=== PATIENT | female | born 1960 | race Caucasian/White ===

== ENCOUNTER 2017-07-01 12:57 | Emergency (ER) | payer MEDICARE, SELFPAY ==
[~2017-07-01] VITALS: Ht 165.1 cm; Wt 80.3 kg
[~2017-07-01 12:57] MED LIST: ASPI81CH PO; CHOL10002 PO; CYCL10 PO; DOCU100 PO; DULO60 PO; ESTR.1TPW TOP; IBUP800 PO; L-TYROSINE500 MG PO; MULTIVITAMIN PO; OMEP20ER PO; OXYACE5T PO; PROM25 PO; TUMERIC
[2017-07-01] MEDS ORDERED: PROBIOTIC1 EAC3 PO (13:03)
[2017-07-01] MEDS ORDERED: ASPI81CH PO (13:03)
[2017-07-01] MEDS ORDERED: Hair, Skin & N1 EACH PO (13:03)
[2017-07-01] MEDS ORDERED: MAGAMI (13:04)
[2017-07-01] MEDS ORDERED: Sudogest60 MG PO (13:40)
[2017-07-01] MEDS ORDERED: Augmentin 875-1 EACH PO (13:40)
== END 2017-07-01 14:07 | disposition home or self-care (01) ==
LOC: ER 12:57
DX: J32.9 Chronic sinusitis, unspecified (principal); K21.9 Gastro-esophageal reflux disease without esophagitis; Z91.018 Allergy to other foods; Z88.8 Allergy status to other drugs, medicaments and biological substances; Z79.899 Other long term (current) drug therapy; Z79.82 Long term (current) use of aspirin
CPT/HCPCS: 99283

== ENCOUNTER 2019-02-06 09:51 | Day surgery (SDC) | payer MEDICARE ==
[~2019-02-06] VITALS: Ht 167.6 cm; Wt 77.0 kg
[~2019-02-06 09:51] MED LIST changes: +Augmentin 875-1 EACH PO; +Hair, Skin & N1 EACH PO; +MAGAMI; +PROBIOTIC1 EAC3 PO; +Sudogest60 MG PO
[2019-02-06] MEDS ORDERED: CLIMARA1 EACH TOP (10:25)
--- NOTE | 2019-02-06 10:52 | NUR ---
ASA 325MG GIVEN PO
--- NOTE | 2019-02-06 15:11 | NUR ---
Pt with small hematoma post tr-band. Pressure held, Pt sitting up in chair the hematoma is small with swelling to mid forarm. Pt with tr-band. I did remove 4 cc air upon seeing the swelling and applied manual pressure. Pt now receiving 14 day monitor for post op care. Total of 10 min of pressure held the forearm is improved. July Hasmukh RT held for 5 min.
--- NOTE | 2019-02-06 15:26 | NUR ---
1524 manual pressure held on right radial site for hematoma right past tr-band. By Christie Cruz RN.
--- NOTE | 2019-02-06 18:14 | NUR ---
RADAIL SITE CALL MADE TO DR. ROSS. PT REMAINS A&OX3 AND DENIES ANY PAIN OTHER THAN WHEN WE TOUCH R RADIAL SITE. R RADIAL SITE HAS SWELLING BELOW THE TR BAND-SIZE MARLENE. PRESSURE HAS BEEN HELD THREE TIMES 10 MINUTES EACH. USAR IN TO SEE PT. INSTRUCTIONS GIVEN TO USE MANUAL PRESSURE CUFF FOR 20 MIN ON FOR 3 MIN AND OFF FOR 1 MIN. THIS WAS COMPLETED BY 1720. WILL CONTINUE TO MONITOR.
--- NOTE | 2019-02-06 19:10 | NUR ---
R WRIST TR BAND REMOVED. -BLEEDING OR SWELLING. PUNCTURE AREA CLEANED WITH NS. CLOTH DOT DRSG PLACED. IV REMOVED. R WRIST SPLINT REAPPLIED. SLING APPLIED. PT AND VERBALIZED UNDERSTANDING OF WRITTEN AND VERBAL D/C INST.
== END 2019-02-06 23:50 | disposition home or self-care (01) ==
LOC: MHTC 09:51 → ORSCMMR 09:52 → MHTC 10:00
DX: R07.9 Chest pain, unspecified (principal); R00.2 Palpitations; R94.39 Abnormal result of other cardiovascular function study; E78.5 Hyperlipidemia, unspecified; M19.90 Unspecified osteoarthritis, unspecified site; K21.9 Gastro-esophageal reflux disease without esophagitis; Z79.82 Long term (current) use of aspirin; Z79.899 Other long term (current) drug therapy; Z88.1 Allergy status to other antibiotic agents
CPT/HCPCS: 85347; 93005; 93010; 93458; 99152; 99153; C1769; C1894; J1644; J2250; J3010; J7030; Q9967

== ENCOUNTER → 2022-02-10 | Outpatient (CLI) | payer MEDICARE ==
[~2022-02-10] MED LIST changes: +CLIMARA1 EACH TOP
== END | disposition home or self-care (01) ==
LOC: LAB 19:07 → LAB SHORT 19:07
DX: N39.0 Urinary tract infection, site not specified (principal); M54.50 Low back pain, unspecified; R11.0 Nausea
CPT/HCPCS: 87077; 87086; 87186

== ENCOUNTER → 2022-09-01 | Outpatient (CLI) | payer MEDICARE | END | disposition home or self-care (01) | LOC: LAB SHORT 13:17 → LAB 13:17 | PROVIDERS: Nurse Practitioner Family | DX: E24.9 Cushing's syndrome, unspecified (principal) | CPT/HCPCS: 82530 ==

== ENCOUNTER 2022-11-15 08:51 | Day surgery (SDC) | payer MEDICARE, OTHER ==
[2022-11-15] VITALS (16 sets, daily range): BP systolic 111–150; BP diastolic 82–96
[~2022-11-15] VITALS: Ht 162.6 cm; Wt 87.8 kg
[~2022-11-15 08:51] MED LIST changes: +Ginger250 MG PO; +LOSA50 PO; +TURMERIC500 M2
--- NOTE | 2022-11-15 09:55 | NUR ---
Ambulatory in Day Surgery History, Chart, Medications and Allergies reviewed before start of procedure. Lungs clear anteriorly to Auscultation. Pre-Op teaching done. Pt verbalizes understanding. Patient States Post-Procedure ride home has been arranged.
--- NOTE | 2022-11-15 10:25 | NUR ---
11/15/22 1025 Lorrie Ortiz HISTORY, CHART, MEDICATIONS AND ALLERGIES REVIEWED BEFORE START OF PROCEDURE. PATIENT CONFIRMS NPO STATUS AND AGREES WITH SCHEDULED PROCEDURE. 3-LEAD EKG REVIEWED WITH PHYSICIAN PRIOR TO START OF PROCEDURE. MONITOR INTACT WITH CONTINUOUS PULSE OXIMETRY,CAPNOGRAPHY, 3-LEAD EKG, INTERMITTENT BP. SUPPLEMENTAL O2 TO BE TITRATED THROUGHOUT PROCEDURE TO MAINTAIN O2 SATURATION ABOVE 90%. PATIENT DETERMINED TO BE ASA APPROPRIATE FOR PROPOFOL SEDATION PRIOR TO START OF PROCEDURE BY DR. GOULD.
--- NOTE | 2022-11-15 11:09 | NUR ---
REPORT RECIEVED. PT SITTING UP IN BED TOLERING PO FLUIDS. DR GOULD AND AT BEDSIDE. VSS ON ROOM AIR
--- NOTE | 2022-11-15 11:24 | NUR ---
Patient up to Ambulate independently. Gait steady. Discharge instructions reviewed with patient. Patient verbalizes understanding. Copy given to patient to take home. Discharged via wheelchair to private car for ride home.
== END 2022-11-15 11:25 | disposition home or self-care (01) ==
LOC: ORSCMMR 08:51 → ORD 10:00 → ORSCMMR 11:25
PROVIDERS: Internal Medicine Gastroenterology
PROC: 0DBN8ZX Excision of Sigmoid Colon, Via Natural or Artificial Opening Endoscopic, Diagnostic (ICD-10-PCS; principal; 2022-11-15 10:00)
DX: Z12.11 Encounter for screening for malignant neoplasm of colon (principal); K63.5 Polyp of colon; K21.9 Gastro-esophageal reflux disease without esophagitis; F32.A Depression, unspecified; I10 Essential (primary) hypertension; Z79.82 Long term (current) use of aspirin; Z79.899 Other long term (current) drug therapy
CPT/HCPCS: 88305; J2704; J7120

== ENCOUNTER → 2023-03-19 | Outpatient (CLI) | payer MEDICARE, OTHER | LOC: LAB 12:00 → LAB SHORT 12:00 | DX: R30.0 Dysuria (principal) | CPT/HCPCS: 87077; 87086; 87186 ==

== ENCOUNTER → 2023-04-25 | Outpatient (CLI) | payer MEDICARE, OTHER | LOC: LAB SHORT 11:36 → LAB 11:36 | DX: R10.9 Unspecified abdominal pain (principal) | CPT/HCPCS: 87338 ==

== ENCOUNTER 2024-10-31 07:44 | Day surgery (SDC) | payer MEDICARE ==
[~2024-10-31] VITALS: Ht 160 cm; Wt 63.3 kg
[~2024-10-31 07:44] MED LIST changes: +ABC COMPLETE W1 EACH PO; +ALPR.25 PO; +ATOR80 PO; +CLOP75 PO; +DILT120 PO; +EZET10 PO; +MAGNESIUM GLU27.5 M1; +PANT20 PO; +POTASSIUM PO; +[UNRECOGNIZED DRUG - CODE] PO
[2024-10-31] MEDS ORDERED: LOSA25 PO (08:14)
[2024-10-31] MEDS ORDERED: POTA10T PO (08:15)
--- NOTE | 2024-10-31 09:05 | NUR ---
10/31/24 0905 Sara Hopson History, Chart, Medications and Allergies reviewed before start of procedure. eliot providing anesthesia see notes. prior to start of procedure bite block placed and O2 via pom mask on at 10L
[2024-10-31 10:24] VITALS: BP 113/79
--- NOTE | 2024-10-31 10:42 | NUR ---
Discharge instructions reviewed with patient. Patient verbalizes understanding. Copy given to patient to take home. Patient up to Ambulate independently. Gait steady. Discharged via wheelchair to private car for ride home.
== END 2024-10-31 10:41 | disposition home or self-care (01) ==
LOC: ORSCMMR 07:44 → ORD 09:00 → ORSCMMR 10:41
PROVIDERS: Surgery
PROC: 0DJ08ZZ Inspection of Upper Intestinal Tract, Via Natural or Artificial Opening Endoscopic (ICD-10-PCS; principal; 2024-10-31 09:00)
DX: R10.13 Epigastric pain (principal); Z98.84 Bariatric surgery status; Z86.73 Personal history of transient ischemic attack (TIA), and cerebral infarction without residual deficits; K21.9 Gastro-esophageal reflux disease without esophagitis; I10 Essential (primary) hypertension; G47.33 Obstructive sleep apnea (adult) (pediatric); E78.5 Hyperlipidemia, unspecified; I47.10 Supraventricular tachycardia, unspecified; Z79.02 Long term (current) use of antithrombotics/antiplatelets; Z79.82 Long term (current) use of aspirin; Z79.899 Other long term (current) drug therapy
CPT/HCPCS: J2704; J7120

== ENCOUNTER 2024-12-16 06:12 | Day surgery (SDC) | payer MEDICARE ==
[2024-12-16] VITALS (8 sets, daily range): BP systolic 100–131; BP diastolic 70–99
[~2024-12-16 06:12] MED LIST changes: +Aspir 8181 MG PO; +LOSA25 PO; +MULTI-VITAMIN1 EAC2 PO; +POTA10T PO
[2024-12-16] MEDS ORDERED: Bupivacaine 0.5% HCl 5 MG/ML 30MLVIAL ONE (06:56)
--- NOTE | 2024-12-16 07:07 | NUR ---
History, Chart, Medications and Allergies reviewed before start of procedure. Ambulatory in Day Surgery. Patient confirms NPO status and agrees with scheduled surgery. Patient States Post-Procedure ride home has been arranged.
[2024-12-16] MEDS ORDERED: Dexamethasone Sod Phos 10 MG/ML 1ML VIAL ONE (07:15)
[2024-12-16] MEDS ORDERED: Rocuronium Bromide 10 MG/ML 5ML Injection IV ONE (07:15)
[2024-12-16] MEDS ORDERED: FentaNYL Citrate 50 MCG/ML 2 ML Injection ONE ×2 (07:15→08:38)
[2024-12-16] MEDS ORDERED: Midazolam HCl 1MG / ML 2ML Vial ONE (07:15)
[2024-12-16] MEDS ORDERED: Ondansetron HCl 2 MG / ML 2ML Vial ONE (07:15)
[2024-12-16] MEDS ORDERED: Glycopyrrolate 0.2 MG/ML 5ML VIAL ONE (07:59)
[2024-12-16] MEDS ORDERED: HYDROmorphone HCl/Pf 1MG SYR IV PRN (08:25)
[2024-12-16] MEDS ORDERED: FentaNYL Citrate 50 MCG/ML 2 ML Injection IV PRN ×3 (08:25→08:30)
[2024-12-16] MEDS ORDERED: Sugammadex Sodium 200 MG/2ML SDV (100 MG/ML) ONE (08:35)
[2024-12-16] MEDS ORDERED: OxyCODONE 5 mg/Acetamin 325 mg TABLET PO PRN (09:00)
== END 2024-12-16 10:20 | disposition home or self-care (01) ==
LOC: ORSCMMR 06:12 → ORD 07:30 → ORSCMMR 10:20
PROVIDERS: Surgery
PROC: 0FT44ZZ Resection of Gallbladder, Percutaneous Endoscopic Approach (ICD-10-PCS; principal; 2024-12-16 07:30)
DX: K80.20 Calculus of gallbladder without cholecystitis without obstruction (principal); R10.13 Epigastric pain; Z98.84 Bariatric surgery status; I10 Essential (primary) hypertension; E78.5 Hyperlipidemia, unspecified; G47.33 Obstructive sleep apnea (adult) (pediatric); K21.9 Gastro-esophageal reflux disease without esophagitis; Z86.73 Personal history of transient ischemic attack (TIA), and cerebral infarction without residual deficits; Z79.02 Long term (current) use of antithrombotics/antiplatelets; Z79.82 Long term (current) use of aspirin; Z79.899 Other long term (current) drug therapy
CPT/HCPCS: 88304; J1100; J2250; J2405; J2704; J3010; J7120

== ENCOUNTER 2024-12-19 12:39 | Emergency (ER) | payer MEDICARE, OTHER ==
[~2024-12-19] VITALS: Ht 160 cm; Wt 59.9 kg
[2024-12-19 13:30] LABS: BASOPHILS ABSOLUTE AUTO 0.06 K/mm3 (0.00-0.23); BASOPHILS PERCENT AUTO 1 % (0-2); EOSINOPHILS ABSOLUTE AUTO 0.30 K/mm3 (0.00-0.68); EOSINOPHILS PERCENT AUTO 4 % (0-6); Hematocrit 37.8 % (33.0-51.0); Hemoglobin 12.7 g/dL (11.5-16.0); IMMATURE GRAN ABSOLUTE AUTO 0.01 K/mm3 (0.00-0.10); IMMATURE GRAN PERCENT AUTO 0 % (0-1); LYMPHOCYTES ABSOLUTE AUTO 1.95 K/mm3 (0.84-5.20); LYMPHOCYTES PERCENT AUTO 25 % (21-46); MONOCYTES ABSOLUTE AUTO 0.62 K/mm3 (0.16-1.47); MONOCYTES PERCENT AUTO 8 % (4-13); Mean Corpuscular HGB Conc 33.6 g/dL (31.5-36.5); Mean Corpuscular Volume 93 fL (80-100); NEUTROPHILS ABSOLUTE AUTO 4.96 K/mm3 (1.96-9.15); NEUTROPHILS PERCENT AUTO 63 % (41-73); NRBC ABSOLUTE 0.00 K/mm3 (0.00-0.02); NRBC Auto 0.0 /100 WBC (0.0-0.2); Platelet Count 277 K/mm3 (150-400); RDW Coefficient Variation 13.6 % (11.7-14.2); RDW Standard Deviation 46.7 fL (35.1-46.3)
[2024-12-19 14:07] LABS: Alanine Aminotransfer (ALT/SGP 57.0 U/L (12-78); Albumin, Blood 3.5 g/dL (3.4-5.0); Albumin/Globulin Ratio 1.0 (0.8-1.8); Anion Gap 7.0 mmol/L (3-11); Aspartate Aminotrans (AST/SGOT 39.0 U/L (12-37); Bilirubin, Total 0.9 mg/dL (0.1-1.0); Blood Urea Nitrogen 14.0 mg/dL (8-24); CO2, Blood 27.0 mmol/L (21-32); Calcium, Blood 9.1 mg/dL (8.5-10.1); Chloride, Blood 110.0 mmol/L (98-108); Creatinine, Blood 0.58 mg/dL (0.40-1.00); Globulin, Blood 3.4 g/dL (2.2-4.0); Glucose, Blood 87.0 mg/dL (70-99); Potassium, Blood 3.8 mmol/L (3.5-5.5); Sodium, Blood 140.0 mmol/L (136-145); Total Protein, Blood 6.9 g/dL (6.4-8.2)
[2024-12-19] MEDS ORDERED: Dexamethasone Sod Phos 10 MG/ML 1ML VIAL IV ONE (15:55)
[2024-12-19] MEDS ORDERED: Prochlorperazine Edisylate 10 mg Vial IV ONE (15:55)
[2024-12-19] MEDS ORDERED: DiphenhydrAMINE HCl 50 MG/ML 1ML Vial IV ONE (15:55)
[2024-12-19 17:00] VITALS: BP 123/81
== END 2024-12-19 17:29 | disposition home or self-care (01) ==
LOC: ER 12:39
PROVIDERS: Student in an Organized Health Care Education/Training Program
DX: G43.909 Migraine, unspecified, not intractable, without status migrainosus (principal); K21.9 Gastro-esophageal reflux disease without esophagitis; E78.5 Hyperlipidemia, unspecified; Z79.899 Other long term (current) drug therapy; Z88.6 Allergy status to analgesic agent; Z88.8 Allergy status to other drugs, medicaments and biological substances
CPT/HCPCS: 70450; 80053; 85025; 96374; 96375; 99284-25; A9270; J0780; J1100; J1200